=== PATIENT | female | born 1955 | race Caucasian/White ===

== ENCOUNTER → 2017-05-05 | Outpatient (CLI) | payer OTHER ==
--- NOTE | 2017-05-05 15:32 | REPMRS ---
Patient History The patient states she had a clinical breast exam in 05/03 Patient is postmenopausal. Family history of unknown cancer in maternal aunt at age 50 or over. Taking estrogen for 5 years. Digital Woman Screen Mammo: May 05, 2017 - Exam #: [id number] Bilateral CC and MLO view(s) were taken. Technologist: Laurne Goldsmith, Technologist Prior study comparison: March 20, 2016, digital woman screen mammo performed at [facility]. March 02, 2015, digital woman screen mammo performed at [facility]. FINDINGS: There are scattered fibroglandular densities. There has been no change in the appearance of the mammogram from the prior studies. There is a mild amount of residual fibroglandular tissue which is fairly symmetric. There is no interval development of dominant mass, architectural distortion, or clustered microcalcification suggestive of malignancy. ASSESSMENT: BI-RADS/ACR category 1 mammogram. Negative. Recommendation Routine screening mammogram in 1 year (for women over age 40). This mammogram was interpreted with the aid of an FDA-approved computer-aided dectection system. Electronically Signed By: Manpreet Burkett MD 05/05/17 [id number]
== END ==
LOC: M WHC 12:33
PROVIDERS: ATTEND Nurse Practitioner Family
DX: Z12.31 Encounter for screening mammogram for malignant neoplasm of breast (principal); Z78.0 Asymptomatic menopausal state; Z79.890 Hormone replacement therapy

== ENCOUNTER → 2018-05-06 | Outpatient (CLI) | payer OTHER ==
--- NOTE | 2018-05-06 16:15 | REPMRS ---
Patient History The patient states she had a clinical breast exam in 04/2018. Patient is postmenopausal. Family history of pancreatic cancer in father. Taking estrogen for 6 years. Digital Woman Screen Mammo: May 06, 2018 - Exam #: [id number] Bilateral CC and MLO view(s) were taken. Technologist: Bailey Willson, Technologist Prior study comparison: May 05, 2017, digital woman screen mammo performed at [facility]. March 20, 2016, digital woman screen mammo performed at [facility]. March 02, 2015, digital woman screen mammo performed at [facility]. FINDINGS: There are scattered fibroglandular densities. There has been no change in the appearance of the mammogram from the prior studies. There is a mild amount of scattered fibroglandular density which is fairly symmetric. There is no interval development of dominant mass, architectural distortion, or clustered microcalcification suggestive of malignancy. 3-D tomosynthesis shows no additional findings. Assessment: BI-RADS/ACR category 1 mammogram. Negative. Recommendation Routine screening mammogram of both breasts in 1 year (for women over age 40). This patient's Lifetime Breast Cancer RIsk is estimated at 8.8 %. This mammogram was interpreted with the aid of an FDA-approved computer-aided dectection system. Electronically Signed By: Alex Lazo MD 05/06/18 [id number]
--- NOTE | 2018-05-13 13:30 | DEXA ---
AP SPINE L1 - L4 1.040 -1.2 0.1 LT FEMUR TOTAL 0.881 -1.0 0.0 LT NECK 0.794 -1.8 -0.4 RT FEMUR TOTAL 0.850 -1.3 -0.2 RT NECK 0.771 -1.9 -0.6 TOTAL BODY TOTAL OTHER COMMENTS: There is low bone density of the spine and hips. The density of the spine has decreased 7.3% since the initial exam on 04/01/2012. The spine density has increased 4.9% since the most recent exam on 04/25/2016. The density of the left hip has decreased 6.4% since the initial exam on 04/01/2012. The density of the left hip has increased 1.8% since the most recent exam on 04/25/2016. The density of the right hip has decreased 1.2% since the initial exam on 04/01/2012. The density of the right hip has increased 4.7% since the most recent exam on 04/25/2016. FOLLOW-UP: Recommendation for the next bone density exam: 2 years. FANYD
== END ==
LOC: M WHC 13:11
PROVIDERS: ATTEND Nurse Practitioner Family
DX: Z12.31 Encounter for screening mammogram for malignant neoplasm of breast (principal); M85.80 Other specified disorders of bone density and structure, unspecified site; Z78.0 Asymptomatic menopausal state; Z79.899 Other long term (current) drug therapy

== ENCOUNTER → 2019-06-21 | Outpatient (CLI) | payer BC ==
--- NOTE | 2019-06-21 16:36 | REPMRS ---
Patient History The patient states she had a clinical breast exam in 2019. Family history of pancreatic cancer in father. Taking estrogen for 6 years. Digital Woman Screen Mammo: June 21, 2019 - Exam #: [id number] Bilateral CC and MLO view(s) were taken. Technologist: Eboni Martin, Technologist Prior study comparison: May 06, 2018, bilateral digital woman screen mammo performed at [facility]. May 05, 2017, digital woman screen mammo performed at [facility]. March 20, 2016, digital woman screen mammo performed at [facility]. FINDINGS: There are scattered fibroglandular densities. There has been no change in the appearance of the mammogram from the prior studies. There is a mild amount of scattered fibroglandular density which is fairly symmetric. There is no interval development of dominant mass, architectural distortion, or grouped microcalcification suggestive of malignancy. 3-D tomosynthesis shows no additional findings. Assessment: BI-RADS/ACR category 1 mammogram. Negative Mammogram. Recommendation Routine screening mammogram of both breasts in 1 year (for women over age 40). This patient's Lifetime Breast Cancer Risk is estimated at 8.4 %. This mammogram was interpreted with the aid of an FDA-approved computer-aided dectection system. Electronically Signed By: Alex Lazo MD 06/21/19 [id number]
== END ==
LOC: M WHC 14:52
PROVIDERS: ATTEND Nurse Practitioner Family
DX: Z12.31 Encounter for screening mammogram for malignant neoplasm of breast (principal)

== ENCOUNTER → 2019-06-21 | Outpatient (REF) | payer BC | LOC: M SFHCWAGY 17:06 | PROVIDERS: ATTEND Nurse Practitioner Family | DX: Z12.4 Encounter for screening for malignant neoplasm of cervix (principal) | CPT/HCPCS: 87624; G0123 ==

== ENCOUNTER → 2020-06-22 | Outpatient (CLI) | payer BC ==
--- NOTE | 2020-06-22 16:27 | DEXAMM ---
INDICATION: M85.80 LOW BONE DENSITY. COMPARISON: None. TECHNIQUE: Bone density was measured using dual-energy x-ray absorptionmetry (DEXA). FINDINGS: AP SPINE L1-L4 BMD 1.121 g/cm2 Young Adult T-Score -0.6 Age Matched Z-Score 0.9. LT FEMUR, TOTAL BMD 0.864 g/cm2 Young Adult T-Score -1.1 Age Matched Z-Score 0.0. LT NECK BMD 0.788 g/cm2 Young Adult T-Score -1.8 Age Matched Z-Score -0.4. RT FEMUR, TOTAL BMD 0.855 g/cm2 Young Adult T-Score -1.2 Age Matched Z-Score -0.1. RT NECK BMD 0.803 g/cm2 Young Adult T-Score -1.7 Age Matched Z-Score -0.3. IMPRESSION: There is normal bone density of the spine. There is low bone density of the left hip. There is low bone density of the right hip. The density of the spine has decreased 0.1% since the initial exam on April 01, 2012. The density of the spine increased 7.8% since most recent exam on May 06, 2018. The density of the left hip has decreased 8.2% since initial exam on April 01, 2012. The density of the left hip has decreased 1.9% since most recent exam on May 06, 2018. The density of the right hip has decreased 0.6% since the initial exam on April 01, 2012. The density of the right hip has increased 0.6% since the most recent exam on May 06, 2018. FOLLOW-UP: Recommendation for the next bone density exam: 2 years. <Electronically signed by Alex Lazo > 06/22/20 [id number]
--- NOTE | 2020-06-22 16:56 | REPMRS ---
Patient History The patient states she had a clinical breast exam in June 2020. Family history of pancreatic cancer in father. Taking estrogen for 6 years. Digital Woman Screen Mammo: June 22, 2020 - Exam #: [id number] Bilateral CC and MLO view(s) were taken. Technologist: RT Luisito Prior study comparison: June 21, 2019, bilateral digital woman screen mammo performed at [facility]. May 06, 2018, bilateral digital woman screen mammo performed at [facility]. May 05, 2017, digital woman screen mammo performed at [facility]. FINDINGS: There are scattered fibroglandular densities. The Volpara volumetric breast density category is:B. There is a possible spiculated nodular density in the left breast just lateral to the plane of the nipple middle 3rd. This merits further evaluation. It is not apparent on the MLO projection. There has been no other change in the appearance of the mammogram from the prior studies. There is a mild amount of scattered fibroglandular density which is fairly symmetric. There is no interval development of dominant mass, architectural distortion, or grouped microcalcification suggestive of malignancy. 3-D tomosynthesis shows no additional findings. Assessment: BI-RADS/ACR category 0 mammogram, Incomplete. Need additonal imaging evaluation and/or prior mammograms for comparison. Recommendation Ultrasound and special view mammogram of the left breast. This patient's [facility] Lifetime Breast Cancer RIsk is estimated at 8.1 %. This mammogram was interpreted with the aid of an FDA-approved computer-aided dectection system. Electronically Signed By: Alex Lazo MD 06/22/20 [id number]
== END ==
LOC: M WHC 14:22
PROVIDERS: ATTEND Nurse Practitioner Family
DX: Z12.31 Encounter for screening mammogram for malignant neoplasm of breast (principal); M85.88 Other specified disorders of bone density and structure, other site; Z80.0 Family history of malignant neoplasm of digestive organs; Z92.23 Personal history of estrogen therapy; N63.20 Unspecified lump in the left breast, unspecified quadrant

== ENCOUNTER → 2020-06-28 | Outpatient (CLI) | payer BC ==
--- NOTE | 2020-06-28 14:55 | REP ---
INDICATION: ADDL VIEWS/LEFT BREAST FIGROGLANDULAR DENSITIES; LEFT BREAST FIBROGLANDULAR DENSITIES. Screening mammography 22 June 2020 was BI-RADS category 0 incomplete because of possible spiculated nodular density seen on the CC view. COMPARISON: Comparison mammography is reviewed from 06 May 2018 and 21 June 2019. TECHNIQUE: Magnified focal spot-compression CC, mL, and MLO views of the left breast are obtained. Rolled craniocaudal projection images are acquired and a true mediolateral view with 3D tomography was acquired. Targeted left breast sonography is performed in the upper outer quadrant. This mammogram was interpreted with the aid of an FDA-approved computer-aided detection system. FINDINGS: Scattered fibroglandular elements are seen. The magnified focal spot-compression CC view shows a nodular opacity similar to that on the screening CC view. However, this could not be confidently identified on orthogonal views or on rolled CC views. True mediolateral view with tomography fail to show a nodular density corresponding to this. This is felt to be most likely summation shadow. . Targeted ultrasound: Targeted left upper outer quadrant sonography is performed. Heterogeneous fibroglandular background echotexture is seen. No suspicious a mass or architectural distortion is seen. IMPRESSION: BIRADS/ACR category 2 benign left breast mammographic and sonographic findings. Finding on screening exam is felt to be artifactual, summation shadow. This patient's Tyrer-Cuzick lifetime breast cancer risk assessment score is 8.1%. RECOMMENDATION: Repeat screening mammography recommended 1 year (for women over 40). The patient letter being requested is M1. <Electronically signed by Alex Lazo > 06/28/20 [id number]
== END ==
LOC: M WHC 13:04
PROVIDERS: ATTEND Nurse Practitioner Family
DX: Z12.31 Encounter for screening mammogram for malignant neoplasm of breast (principal)
CPT/HCPCS: 76642; 77065; G0279

== ENCOUNTER → 2021-10-18 | Outpatient (CLI) | payer MEDICARE, OTHER | LOC: M WHC 11:26 | PROVIDERS: ATTEND Obstetrics & Gynecology | DX: Z12.4 Encounter for screening for malignant neoplasm of cervix (principal); Z12.31 Encounter for screening mammogram for malignant neoplasm of breast; Z78.0 Asymptomatic menopausal state; Z80.0 Family history of malignant neoplasm of digestive organs; Z92.23 Personal history of estrogen therapy ==

== ENCOUNTER → 2022-12-23 | Outpatient (CLI) | payer MEDICARE, OTHER | LOC: M WHC 10:01 | PROVIDERS: ATTEND Obstetrics & Gynecology | DX: Z12.31 Encounter for screening mammogram for malignant neoplasm of breast (principal) ==

== ENCOUNTER → 2022-12-23 | Outpatient (REF) | payer MEDICARE, OTHER | LOC: M SFHCWAGY 13:22 | PROVIDERS: ATTEND Obstetrics & Gynecology | DX: Z12.4 Encounter for screening for malignant neoplasm of cervix (principal); R87.610 Atypical squamous cells of undetermined significance on cytologic smear of cervix (ASC-US) | CPT/HCPCS: 87624; G0123 ==

== ENCOUNTER → 2023-01-15 | Outpatient (CLI) | payer MEDICARE, OTHER | LOC: M WHC 12:22 | PROVIDERS: ATTEND Obstetrics & Gynecology | DX: Z13.820 Encounter for screening for osteoporosis (principal) ==

== ENCOUNTER → 2024-02-02 | Outpatient (CLI) | payer MEDICARE | LOC: M WHC 11:30 | PROVIDERS: ATTEND Obstetrics & Gynecology | DX: Z12.31 Encounter for screening mammogram for malignant neoplasm of breast (principal) ==

== ENCOUNTER → 2024-02-02 | Outpatient (REF) | payer MEDICARE, OTHER ==
[2024-02-04 15:22] LABS: HPV APTIMA Not Detected (Not Detected)
== END ==
LOC: M PLALAB 13:14
PROVIDERS: ATTEND Obstetrics & Gynecology
DX: Z12.4 Encounter for screening for malignant neoplasm of cervix (principal)